=== PATIENT | male | born 1990 | race Caucasian/White ===

== ENCOUNTER 2025-01-29 20:40 | Emergency (ER) | payer MEDICAID, SELFPAY ==
--- OUTSIDE RECORDS SUMMARY | 2022-09-11 08:15 | XMS_ITS | Continuity of Care Document ---
Author Organization [facility] Address [id number][place] [address] Phone Care Team Providers Care Physiognomist Name Role Phone Renee Greenberg DMD Unavailable Unavailable Allergies, Adverse Reactions, Alerts Substance Reaction Status Criticality NSAIDS (Non-Steroidal Anti-Inflammatory Drug) Active No Information Medications Medication Instructions Dosage Effective Dates (start - stop) Status Comments hydrocodone 5 mg-acetaminophen 325 mg tablet take 1 tablet by oral route every 6 hours as needed for pain from oral surgery - Active pantoprazole DR 40 mg granules delayed-release for susp in packet take 1 packet by oral route every day mixed in 1 teaspoonful of applesauce or apple juice 40 MG - Active [place] 5 mg-325 mg tablet take 1 tablet by oral route every 4- 6 hours as needed for pain - No Longer Active Procedures Procedure Date Pre-Pay For Services Panoramic Film Intraoral Periapical First Film Intraoral Periapical Each Additional Film Limited Oral Evaluation Problem Focused Surgical Removal Of Erupted Tooth Requir ing Elevat Limited Oral Evaluation Problem Focused Extraction, Erupted Tooth Or Exposed Yeni t (Elevati Intraoral Periapical First Film Limited oral eval, x-ray & 1st extractio n PATIENT LEFT W/O BEING SEEN Limited Oral Evaluation Problem Focused Intraoral Periapical First Film Extraction, Erupted Tooth Or Exposed Yeni t (Elevati EDR Approval Note Intraoral Periapical First Film Limited Oral Evaluation Problem Focused Surgical Removal Of Erupted Tooth Requir ing Elevat EDR Approval Note EDR Approval Note Extraction, Erupted Tooth Or Exposed Yeni t (Elevati Intraoral Periapical Each Additional Film Limited Oral Evaluation Problem Focused Advance Directives Directive Yes / No Effective Date File Name No Information Encounters Encounter Description Practice Location Reason(s) For Visit Diagnoses Date Provider Providers Copied on Encounter [facility], [id number], [id number], [place] tel:[phone] [facility] No Information Mar-0 3- 3 Dionicio Duran. [address] [place] [address], [address], [place]. tel:[phone] Referring Provider: Renee Greenberg, [address] [place] [address], [address]. tel:[phone] [facility], [id number] [place], [address], [place] tel:[phone] [facility] No Information Mar-0 3- 3 Mariama Millard. [address] [place], [place], [id number], [place]. tel:[phone] Referring Provider: Freeman Leslie, [address] [place], [address] . tel:[phone] sulting Provider: Ana Olsen, [address] [place], [address] . tel:[phone] [facility], [id number] [place], [id number], [place] tel:[phone] [facility] F2 No Information 2 Chika Guzman. [address] [place], [place], [id number], [place]. tel:[phone] Referring Provider: Thomas Link, [address] [place], [address] . tel:[phone] [facility], [id number]-Gq [place], [place], [id number], [place] tel:[phone] [facility] No Information 2 Dionicio Duran. [address] [place] [address], [address], [place]. tel:[phone] Referring Provider: Renee Greenberg, [address] [place] [address], [address]. tel:[phone] [facility], [id number] 559[place], [address], [place] tel:[phone] [facility] Encounter for dental exam and cleaning w/o abnormal findings Sep-0 9 Chika Guzman. [address] [place], [place], [address], [place]. tel:[phone] Referring Provider: Thomas Link, [address] [place], [address] . tel:[phone] [facility], [id number] [id number]-W[place], [address], [place] tel:[phone] [facility] Encounter for dental exam and cleaning w/o abnormal findings Sep-1 7 No Information [facility], [id number]-Wu [place], [address], [place] tel:[phone] [facility] Encounter for dental exam and cleaning w/o abnormal findings Sep-2 2 6 Rigoberto Gutiérrez. [address] [place], [address], [place]. tel:[phone] Referring Provider: Brock Franklin T, [address] [place], [address]. tel:[phone] Family History Family Member Type Diagnosis Age At Onset Mother Problem (finding) Alive and well Father Problem (finding) Alive and well Payers Payer name Insurance type Covered democrat ID Authoriza tion(s) No Information Social History Type Description Quantity Date Captured Comments Alcohol Use Details No Caffeine Use Details Unknown Tobacco Use Status Smoking Status No Information Sex Male Sexual Orientation Bisexual Gender Identity Male Chief Complaint And Reason For Visit No Information Reason For Referral Reason For Referral No Information Plan Of Treatment Date Type Action Status Goal Tobacco cessation counseling completed Goal Tobacco cessation counseling completed Goal Tobacco cessation counseling completed Goal Tobacco cessation counseling completed Goal Tobacco cessation counseling completed Goal Tobacco cessation counseling completed History Of Present Illness Encounter Date Complaint History Of Prese nt Illness No Information Functional Status Date Functional Assessmen t No Information Instructions Date Instruction Additional Infor mation Lifestyle education Related to D ental Examination Lifestyle education Related to D ental Examination Lifestyle education Related to D ental Examination Lifestyle education Related to D ental Examination Lifestyle education Related to D ental Examination Lifestyle education Related to D ental Examination Assessments Type Assessment Date No Information Patient Care Teams Name Effective Dates (start - stop) Status Members No Information
--- NOTE | 2025-01-29 | ECG_ITS ---
Test Reason : cp Blood Pressure : */* mmHG Vent. Rate : 64 BPM Atrial Rate : 64 BPM P-R Int : 172 ms QRS Dur : 96 ms QT Int : 380 ms P-R-T Axes : 32 55 29 degrees QTcB Int : 392 ms Normal sinus rhythm Normal ECG No previous ECGs available Referred By: Generic ED Physician Electronically Signed By: Will Tillman
[2025-01-29 21:19] VITALS: BP 142/75; PULSE 61; RESP 18; TEMP 36.6; O2SAT 100; BMI 33.4
--- NOTE | 2025-01-29 21:24 | PC.NURSE ---
pt with episode of vomiting after triage
[2025-01-29 21:52] LABS: MANUAL DIFF FLAG NO
[2025-01-29 21:58] LABS: Hematocrit 29.8 % (42.0-52.0); Hemoglobin 8.4 g/dl (14.0-18.0); Imm Gran Abs Auto 0.01 X10*3/uL (0.00-0.03); Imm Gran Pct Auto 0.2 % (0.0-0.4); Lymphocytes Absolute Auto 1.8 X10*3/uL (1.2-4.9); Mean Corpuscular HGB Conc 28.2 g/dl (31.0-36.0); Mean Corpuscular Hemoglobin 21.4 pg (27.0-33.0); Mean Corpuscular Volume 75.8 fL (80.0-98.0); NRBC Abs Auto 0.000 X10*3/uL (0.0-0.012); NRBC Pct Auto 0.0 /100WBC (0.0-0.2); Platelet Count 271 X10*3/uL (160-400); Red Blood Count 3.93 X10*6/uL (4.60-5.80); White Blood Count 5.5 X10*3/uL (4.8-10.8)
[2025-01-29 22:10] LABS: Alanine Aminotransferase 23 U/L (0-40); Albumin Level 4.6 g/dL (3.5-5.0); Alkaline Phosphatase 62 U/L (39-117); Anion Gap 9 (12-20); Aspartate Amino Transferase 30 U/L (5-37); Blood Urea Nitrogen 8 mg/dL (9-16); Calcium 8.7 mg/dL (8.4-10.2); Carbon Dioxide 28 mmol/L (22-29); Chloride 108 mmol/L (96-108); Creatinine Clr Calc Pharmacy 204.4; Estimated Glomerular Filt Rate > 60; Potassium 3.8 mmol/L (3.3-5.1); Sodium 141 mmol/L (135-145); Total Protein 7.1 g/dL (6.5-8.0)
[2025-01-29 22:17] LABS: Troponin-I High Sensitivity < 2.7 ng/L (<3.5-35.0)
[2025-01-30 01:18] VITALS: BP 124/73; PULSE 56; RESP 17; TEMP 36.7; O2SAT 99
--- NOTE | 2025-01-30 02:05 | ED_ITS ---
HPI - Chest Pain General Chief Complaint: Chest Pain Stated Complaint: chest pain for almost a week Time Seen by Provider: 01/30/25 01:47 Source: patient Mode of arrival: ambulatory Limitations: no limitations History of Present Illness ED Provider: Dr. Rere Garcia HPI narrative: Patient comes to the emergency room complaining of intermittent chest pains for about a week, patient states that the pain is unrelated to exertion. Patient states that he works for [employer] and his work is very physically demanding. Patient denies any trauma. Patient denies any shortness of breath, but states that he does feel short of breath going up the stairs. However, patient states that this has been going on for several months and has not not paid any significant attention to this. Related Data Previous Rx's ?Medication ?Instructions ?Recorded ferrous gluconate 324 mg (37.5 mg 324 mg PO DAILY #30 tabs 01/30/25 iron) tablet Allergies Allergy/AdvReac Type Severity Reaction Status Date / Time NSAIDS (Non-Steroidal AdvReac Gastrointestinal Verified 01/29/25 21:20 Anti-Inflamma Hemorrhage Review of Systems 2 Review of Systems: Constitutional : No Weight loss, No Fever, No Chills, No Night Sweats, No Fatigue, No Malaise ENT/Mouth : No Hearing loss, No Ear Pain, No Nasal Congestion, No Sinus Pain, No Hoarseness, No sore throat, No Rhinorrhea, No Swallowing Difficulty Eyes: No Eye Pain, No Swelling, No Redness, No Foreign Body, No Discharge, No Vision Changes Cardiovascular : Complaining of chest pain, intermittent, unrelated to exertion for the last couple of weeks. No SOB, complaining of chronic Dyspnea on Exertion, No Orthopnea, No Edema, No Palpitations Respiratory : No Cough, No Sputum, No Wheezing, No Smoke Exposure, No Dyspnea Gastrointestinal : No Nausea, No Vomiting, No Diarrhea, No Constipation, No abdominal Pain, No Hematochezia, No Melena Genitourinary : no irregular bleeding, No Dysuria, No Urinary Frequency, No Hematuria, No Urinary Incontinence, No Urgency, No Flank Pain, No Urinary Flow Changes, No Hesitancy Musculoskeletal : No joint pain, No Myalgias, No Joint Swelling Skin : No Skin Lesions, No rash Neuro : No Weakness, No Numbness, No Paresthesias, No Loss of Consciousness, No Dizziness, No Headache Psych : No Anxiety/Panic, No Depression, No SI/HI/AH/VH, No Social Issues, Heme/Lymph: No Bruising, No Bleeding,No Lymphadenopathy Endocrine : No Polyuria, No Polydipsia, No Temperature Intolerance [facility] Past Medical History Surgical History (Updated 01/30/25 @ 02:07 by Rere Garcia MD) H/O gastric bypass Social History Social History Advance Directives: No Advance Directives Information Provided: Yes Do you have a plan to hurt others: No Plan Physical Exam 2 Vital Signs: Vital Signs: Last Vital Signs Temp 98.1 F 01/30/25 01:18 Pulse 56 01/30/25 01:18 Resp 17 01/30/25 01:18 BP 124/73 01/30/25 01:18 Pulse Ox 99 01/30/25 01:18 O2 Del Method Room Air 01/30/25 01:18 BMI result Body Mass Index 33.4 Course Course Course Narrative: Patient complaining of chest pain for a week, unrelated to exertion. Patient also shortness of with exertion/going up the stairs for several months. Denies any fever or chills. Medications Administered Discontinued Medications Generic Name Dose Route Start Last Admin Trade Name Adyq PRN Reason Stop Dose Admin Ondansetron HCl 4 mg 01/29/25 21:24 01/29/25 21:26 Ondansetron Odt 4 Mg Tab.Rapdis TRANSLINGU 01/29/25 21:25 4 mg ONCE ONE Administration Medical Decision Making Medical Decision Making [facility] Narrative: My interpretation of EKG: Normal sinus rhythm, heart rate 64, no ST segment depression or elevation, no T-wave inversion, QTC 392 My interpretation of labs: Patient's hematology is 8.4, no significant abnormality in patient's white blood cell count, platelets. No significant abnormality in patient's chemistry, normal troponin, normal LFTs. Patient states that he has been told that he is anemic but does not have a PCP. Patient states it has been 3 or 4 years since the last time that he went to see his primary care physician. Patient states that he moved from [place] a a month ago. Patient states that he already has been told that he is anemic, it was believed this was secondary to his gastric bypass which she had 12 years ago. Patient denies any blood in the stool or black stool. Patient states that he does have history of per GI bleed several years after his surgery Patient's occult is was negative. Patient denies any fever chills, states that he lost 13 lb but this is secondary to stress from the recent move according to the patient. I discussed with the patient that a negative guaiac does not rule out malignancy, patient needs to follow-up this PCP and eventually we need likely a colonoscopy. MCV is 75.8. Patient will be started on iron p.o.. I discussed with the patient that given his level of hemoglobin and his symptoms, he would probably benefit from receiving blood. Patient declined at this time, patient states that he will go home and take some iron. Admission was considered, but patient declined, states he will be feeling better from home. Differential Diagnosis Differential Diagnoses: The differential diagnosis associated with the presentation includes (As above) Admission/Observation Consideration of admission/observation: Escalation of care including admission/observation considered (Given patient's labs, observation was considered) Lab Data MDM Lab Attestation statement: I reviewed the patient's lab results. 01/29/25 21:47 01/29/25 21:47 Labs: Lab Results 01/29/25 01/30/25 Range/Units 21:47 02:20 WBC 5.5 (4.8-10.8) X10*3/uL RBC 3.93 L (4.60-5.80) X10*6/uL Hgb 8.4 L (14.0-18.0) g/dl Hct 29.8 L (42.0-52.0) % MCV 75.8 L (80.0-98.0) fL MCH 21.4 L (27.0-33.0) pg MCHC 28.2 L (31.0-36.0) g/dl RDW 18.6 H (11.0-16.0) % Plt Count 271 (160-400) X10*3/uL MPV 9.7 (9.4-12.4) fL Immature Gran % (Auto) 0.2 (0.0-0.4) % Neut % (Auto) 57.8 (45-73) % Lymph % (Auto) 32.5 (20-40) % Sterling % (Auto) 8.2 (2-11) % Eos % (Auto) 1.1 (0-4) % Baso % (Auto) 0.2 (0-2) % Lymph # (Auto) 1.8 (1.2-4.9) X10*3/uL Sterling # (Auto) 0.5 (0.1-1.2) X10*3/uL Eos # (Auto) 0.1 (0.0-0.4) X10*3/uL Baso # (Auto) 0.0 (0.0-0.2) X10*3/uL Abs Immat Gran (auto) 0.01 (0.00-0.03) X10*3/uL Absolute Neuts (auto) 3.2 (2.0-8.3) x10*3/uL Absolute Nucleated RBC 0.000 (0.0-0.012) X10*3/uL Nucleated RBC % (auto) 0.0 (0.0-0.2) /100WBC Sodium 141 (135-145) mmol/L Potassium 3.8 (3.3-5.1) mmol/L Chloride 108 (96-108) mmol/L Carbon Dioxide 28 (22-29) mmol/L Anion Gap 9 L (12-20) BUN 8 L (9-16) mg/dL Creatinine 0.65 (0.5-1.4) mg/dL Estim Creat Clear Calc 204.4 Estimated GFR > 60 Random Glucose 94 (60-115) mg/dL Calcium 8.7 (8.4-10.2) mg/dL Total Bilirubin 0.3 (0.0-1.0) mg/dL Direct Bilirubin 0.1 (0.0-0.5) mg/dL AST 30 (5-37) U/L ALT 23 (0-40) U/L Alkaline Phosphatase 62 (39-117) U/L Troponin I High Sens < 2.7 (<3.5-35.0) ng/L Total Protein 7.1 (6.5-8.0) g/dL Albumin 4.6 (3.5-5.0) g/dL Stool Occult Blood NEGATIVE (NEGATIVE) Critical Care Time Critical Care Time Critical Care Time: Yes Total Critical Care Time: 35 Attestation: I have personally provided critical care time. Time includes review of lab data, radiology results, discussion with consultants, and monitoring for potential decompensation. Intervention performed as documented. Discharge Plan Discharge Clinical Impression: Atypical chest pain, Chronic anemia Patient Disposition: Home, Self-Care Additional Instructions: Please follow-up with your primary care physician tomorrow. If you have any worsening or new symptoms, please return to the emergency room or call 911 Prescriptions: New ferrous gluconate 324 mg (37.5 mg iron) tablet 324 mg PO DAILY Qty: 30 0RF Referrals: Sandhya Arredondo MD [Physician, Hematology & Oncology] Print Language: Georgian
--- OUTSIDE RECORDS SUMMARY | 2025-01-30 02:16 | XMS_ITS | Clinical Summary ---
Author Organization [facility] Address [address] [place] [address] Care Team Providers Care Mold Breaker Name Role Phone Unavailable Primary Care Provider Unavailabl e Source Comments PLEASE NOTE, if this patient is a minor, it may be UNLAWFUL to discuss sensitive information that is contained in these records (such as FAMILY PLANNING, MENTAL HEALTH or SUBSTANCE ABUSE) with the minor patient's parent or other person without the patient's specific authorization.[facility] Allergies Active Allergy Reactions Criticality Noted Date Comments Nsaids (Non-Steroidal Anti-I nflammatory Drug) 04/02/2016 Medications HYDROcodone-acet aminophen (NORCO) 5-325 mg per tablet Take 1 Tablet by mouth every 6 hours as needed 09/11/2022 Active Active Problems Problem Noted Date Diagnosed Date Toothache 03/30/2017 Social History Tobacco Use Types Packs/Day Years Used Date Smoking Tobacco: Never Assessed Social Connections Answer Date Recorded Connectedness 0 03/27/2024 Financial Resource Strain Answer Date R ecorded Financial Resource Strain 0 2023 Stress Answer Date Recorded Stress 0 11/03/2023 Physical Activity Answer Date Recorded Physical Activity 0 11/03/2023 Food Insecurity Answer Date Recorded Food 0 04/06/2024 Transportation Needs Answer Date Record ed Transportation 0 11/03/2023 Housing Stability Answer Date Recorded Housing 0 11/03/2023 Safety and Environment Answer Date Gregg rded Safety 0 11/03/2023 Utilities Answer Date Recorded Utilities 0 11/03/2023 Employment Answer Date Recorded Stress 0 03/27/2024 Sex and Gender Information Value Date Recorded Sex Assigned at Not on file Legal Sex Male 6:51 PM PDT Gender Identity Male 12/31/2023 4:06 PM PDT Sexual Orientation Bisexual 12/31/2023 4: 06 PM PDT Plan of Treatment Health Maintenance Due Date Last Done Comments Anxiety Screening 1992 Hepatitis B Screening 1992 Hepatitis C Screening 1992 Tobacco Screening 1992 HIV Screening 1992 Hypertension Screening (#1) 2010 Imm-DTaP/Tdap/Td (1 - Tdap) 2011 Imm-Hepatitis B (1 of 3 - 19+ 3-dose series) 1 [id number] (2023- season) 2024 Alcohol and Drug Screen 07/12/2024 Depression Annual Screen 07/12/2024 Imm-Influenza (#1) 2025
[2025-01-30 02:24] LABS: OBS Int Ctl Valid YES; OBS1 NEGATIVE (NEGATIVE)
[2025-01-30 04:26] VITALS: BP 123/71; PULSE 60; RESP 16; TEMP 36.6; O2SAT 100
[2025-01-30 04:37] VITALS: BP 123/71; PULSE 60; RESP 16; TEMP 36.6; O2SAT 100
== END 2025-01-30 04:38 | disposition home or self-care (01) ==
PROVIDERS: Emergency Provider Emergency Medicine
DX: R07.89 Other chest pain (principal); D64.89 Other specified anemias; R06.02 Shortness of breath
CPT/HCPCS: 36415; 80048; 80076; 82272; 84484; 85025; 93005; 99283; 99284

== ENCOUNTER → 2025-01-29 20:55 | Outpatient (BNV) | payer MEDICAID, SELFPAY | PROVIDERS: Emergency Provider Emergency Medicine; Visit Provider Internal Medicine Cardiovascular Disease | DX: R07.89 Other chest pain (principal) | CPT/HCPCS: 93010 ==

== ENCOUNTER 2025-03-19 20:11 | Emergency (ER) | payer OTHER, SELFPAY ==
--- OUTSIDE RECORDS SUMMARY | 2022-09-11 08:15 | XMS_ITS | Continuity of Care Document ---
Author Organization [facility] Address [address] [id number][place] [address] Phone Care Team Providers Care Wheat Shipper Name Role Phone Renee Greenberg DMD Unavailable [...] or apple juice 40 MG - Active [place] 5 mg-325 mg tablet take 1 tablet [...] Diagnoses Date Provider Providers Copied on Encounter [facility], [id number], [address], [place] tel:[phone] [facility] No Information Mar-0 3- 3 Dionicio Duran. [address] [place] [address], [address], [place]. tel:[phone] Referring Provider: Renee Greenberg, [address] [place] [address], [address]. tel:[phone] [facility], [id number] 173768MC[place], [address], [place] tel:[phone] [facility] No Information Mar-0 3- 3 Mariama Millard. [address] [place], [place], [address], [place]. tel:[phone] Referring Provider: Freeman Leslie, [address] [place], [address] . tel:[phone] sulting Provider: Ana Olsen, [address] [place], [address] . tel:[phone] [facility], [id number] 282097HX[place], [address], [place] tel:[phone] [facility] F2 No Information 2 Chika Guzman. [address], [place], [address], [place]. tel:[phone] Referring Provider: Thomas Link, [address] [place], [address] . tel:[phone] [facility], [id number] 880481PU-Vd [place], [address], [place] tel:[phone] [facility] No Information 2 Dionicio Duran. [address] [place] [address], [address], [place]. tel:[phone] Referring Provider: Renee Greenberg, [address] [place] [address], [address]. tel:[phone] [facility], [id number][place], [address], [place] tel:[phone] [facility] Encounter for dental exam and cleaning w/o abnormal findings Sep-0 9 Chika Guzman. [address], [place], [address], [place]. tel:[phone] Referring Provider: Thomas Link, [address] [place], [address] . tel:[phone] [facility], [id number] 380553KG-Rm [place], [address], [place] tel:[phone] [facility] Encounter for dental exam and cleaning w/o abnormal findings Sep-1 7 No Information [facility], [id number] 343543HE-Zi [place], [id number], [place] tel:[phone] [facility] Encounter for dental exam and cleaning w/o abnormal findings Sep-2 2 6 Rigoberto Gutiérrez. [address] [place], [address], [place]. tel:[phone] Referring Provider: Brock Franklin T, [address] [place], [address]. tel:[phone] Family History Family Member Type Diagnosis Age At Onset Mother Problem (finding) Alive and well Father Problem (finding) Alive and well Payers Payer name Insurance type Covered alliance party ID Authoriza tion(s) No Information Social History [...]
--- NOTE | ~2025-03-19 | CT_ITS ---
CLINICAL HISTORY: right flank pain CT ABDOMEN AND PELVIS WITHOUT CONTRAST COMPARISON: None provided. FINDINGS: There is mild right-sided hydroureteronephrosis, with an approximately 4-5 mm stone in the distal right ureter. Stone is seen on axial image 665 of series 4, and coronal image 59. A few small less than 5 mm bilateral renal calculi are noted. No left-sided hydronephrosis or left-sided obstructing stone. No evidence of a urinary bladder stone. No evidence of a bowel obstruction. No free air. Portions of the colon are significantly underdistended which limits assessment. No pericolonic inflammation. Appendix is visualized and there is no evidence of acute appendicitis. The lung bases are unremarkable. Postsurgical changes are noted involving the stomach and small bowel. No focal liver lesion. Liver is enlarged and measures 19.1 cm on coronal image 54. Distended gallbladder is noted. No visible stone. No pericholecystic inflammation. Common bile duct is not dilated. No CT evidence of acute pancreatitis. Spleen is mildly enlarged and measures 12.5 cm on coronal image 60. Adrenal glands are unremarkable. Abdominal aorta is normal in caliber without evidence of an aneurysm. No lymphadenopathy or loculated fluid collection. Bone windows are unremarkable. IMPRESSION: 1. Mild right-sided hydroureteronephrosis, with a 4-5 mm stone in the distal right ureter. 2. A few small less than 5 mm bilateral renal calculi are noted. No left-sided hydronephrosis or left-sided obstructing stone. 3. Mild hepatosplenomegaly. 4. Additional findings are detailed above. This document has been electronically signed by: Alexis Nash M.D. on 03/20/2025 01:53:31
[2025-03-19 20:26] VITALS: BP 115/56; PULSE 80; RESP 20; TEMP 36.1; O2SAT 99; BMI 41.6
[2025-03-19 20:36] LABS: MANUAL DIFF FLAG NO
[2025-03-19 20:37] LABS: Hematocrit 32.8 % (42.0-52.0); Hemoglobin 9.6 g/dl (14.0-18.0); Imm Gran Abs Auto 0.05 X10*3/uL (0.00-0.03); Imm Gran Pct Auto 0.4 % (0.0-0.4); Lymphocytes Absolute Auto 1.0 X10*3/uL (1.2-4.9); Mean Corpuscular HGB Conc 29.3 g/dl (31.0-36.0); Mean Corpuscular Hemoglobin 22.9 pg (27.0-33.0); Mean Corpuscular Volume 78.1 fL (80.0-98.0); NRBC Abs Auto 0.000 X10*3/uL (0.0-0.012); NRBC Pct Auto 0.0 /100WBC (0.0-0.2); Platelet Count 289 X10*3/uL (160-400); Red Blood Count 4.20 X10*6/uL (4.60-5.80); White Blood Count 11.4 X10*3/uL (4.8-10.8)
[2025-03-19 20:54] LABS: Alanine Aminotransferase 24 U/L (0-40); Albumin Level 4.6 g/dL (3.5-5.0); Alkaline Phosphatase 77 U/L (39-117); Anion Gap 14 (12-20); Aspartate Amino Transferase 30 U/L (5-37); Blood Urea Nitrogen 12 mg/dL (9-16); Calcium 9.0 mg/dL (8.4-10.2); Carbon Dioxide 26 mmol/L (22-29); Chloride 105 mmol/L (96-108); Creatinine Clr Calc Pharmacy 150.4; Estimated Glomerular Filt Rate > 60; Lipase 21 U/L (8-78); Potassium 4.4 mmol/L (3.3-5.1); Sodium 141 mmol/L (135-145); Total Protein 7.2 g/dL (6.5-8.0)
[2025-03-19 23:50] LABS: Appearance Urine Clear; Glucose Urine UA Negative (Negative); PH 6.0 (5.0-9.0); Specific Gravity - Urine 1.015 (1.005-1.025); UMIC TRIGGER UACC YES
--- NOTE | 2025-03-20 00:17 | ED_ITS ---
HPI - General Adult General Chief complaint: Abdominal Pain Stated complaint: frequency (?UTI, ?Kidney stone) Time Seen by Provider: 03/19/25 23:32 Source: patient, RN notes reviewed and old records reviewed Mode of arrival: ambulatory Limitations: no limitations History of Present Illness ED Provider: Elisha PRIEST narrative: 34-year-old male presents for evaluation of right-sided flank pain. Patient reports his pain started this morning. He reports having the urge to urinate all day today. His pain is 8/10. He has some nausea but no vomiting. Denies any black or bloody stool He reports a gastric bypass several years ago He also reports a history of kidney stones No fevers or chills Related Data Previous Rx's ?Medication ?Instructions ?Recorded ferrous gluconate 324 mg (37.5 mg 324 mg PO DAILY #30 tabs 01/30/25 iron) tablet tamsulosin 0.4 mg capsule 0.4 mg PO DAILY #7 caps 04/05 Allergies Allergy/AdvReac Type Severity Reaction Status Date / Time NSAIDS (Non-Steroidal AdvReac Gastrointestinal Verified 03/19/25 20:29 Anti-Inflamma Hemorrhage Review of Systems 2 Constitutional: Constitutional: Denies body ache(s), Denies chills and Denies fever(s) ENT: Denies vertigo and Denies dizziness Cardiovascular: Cardiovascular: Denies chest pain and Denies dyspnea on exertion Respiratory: Respiratory: Denies cough and Denies dyspnea on exertion Gastrointestinal: Gastrointestinal: Reports abdominal pain, Reports nausea and Denies vomiting Genitourinary: Genitourinary: Denies hematuria, Denies genital pain, Reports flank pain, Denies penile discharge, Denies scrotal swelling, Denies testicular mass, Denies testicular pain and Reports urinary urgency Musculoskeletal: Musculoskeletal: Denies abnormal gait Neurologic: Denies abnormal gait, Denies vertigo and Denies dizziness [facility] Past Medical History Surgical History (Updated 01/30/25 @ 02:07 by Rere aGrcia MD) H/O gastric bypass Social History Social History Advance Directives: No Advance Directives Information Provided: Yes Do you have a plan to hurt others: No Plan Physical Exam ED Vital Signs: Vital Signs - 24 hr 03/19/25 20:26 03/20/25 01:19 Temperature 97.0 F 98.5 F Pulse Rate 80 62 Respiratory Rate 20 20 Blood Pressure 115/56 L 130/67 Pulse Oximetry 99 97 Oxygen Delivery Method Room Air Room Air BMI result Body Mass Index 41.6 Const General: healthy appearing, comfortable, no acute distress, alert and awake Nutritional Appearance: well nourished Orientation/consciousness: patient oriented x3 HENMT Head: Yes normocephalic and Yes atraumatic Eyes Eyelids: Yes eyelids normal Conjunctivae: conjunctivae normal Sclerae: sclerae normal Corneas: corneas normal Pupils: Equal, round and reactive pupils present EOM: EOMs intact bilaterally Neck Neck: Yes full ROM Resp Effort & Inspection: normal respiratory effort, able to speak in complete sentences and not labored GI Other: Positive CVA tenderness on right Inspection: No distended Palpation (GI): Soft to palpation, not firm, nontender, no guarding and not rigid Skin General skin exam: elasticity normal Neuro General: patient oriented x3 Cranial nerves: Yes Equal, round and reactive pupils present and Yes Bilaterally intact EOM present Cognition (Neuro): normal cognition Extrem Other: Moving all extremities well without any obvious deformities Course Reevaluation(s) Reevaluation #1: The patient's CT scan does confirm a 4/5 millimeter right UVJ stone. I discussed this with the patient, he is currently pain-free. Plan for discharge with symptomatic care Time: 02:01 Medications Administered Discontinued Medications Generic Name Dose Route Start Last Admin Trade Name Freq PRN Reason Stop Dose Admin Sodium Chloride 1,000 mls @ 999 mls/hr 03/19/25 23:45 03/20/25 00:23 Ns IV 03/20/25 00:45 999 mls/hr .Q1H1M MARLYN Administration Morphine Sulfate 4 mg 03/19/25 23:55 03/20/25 00:21 Morphine Sulfate 4 Mg/Ml Cartridge IVPUSH 03/19/25 23:56 4 mg ONCE ONE Administration Protocol Ondansetron HCl 4 mg 03/19/25 23:55 03/20/25 00:21 Ondansetron Hcl 4 Mg/2 Ml Vial IVPUSH 03/19/25 23:56 4 mg ONCE ONE Administration Medical Decision Making Medical Decision Making [facility] Narrative: 34-year-old male with no significant past medical history presents for evaluation of right flank pain starting today. He has positive CVA tenderness, urinalysis is positive for blood, likely obstructive uropathy. Plan for CT scan of the abdomen pelvis without contrast. Hematology does show a mild leukocytosis 11.4 with a left shift. Chemistries are within normal limits. Differential Diagnosis Differential Diagnoses: The differential diagnosis associated with the presentation includes Obstructive uropathy Pyelonephritis UTI Flank pain Constipation Lab Data MDM Lab Attestation statement: I reviewed the patient's lab results. 03/19/25 20:33 03/19/25 20:33 Labs: Lab Results 03/19/25 03/19/25 Range/Units 20:33 23:44 WBC 11.4 H (4.8-10.8) X10*3/uL RBC 4.20 L (4.60-5.80) X10*6/uL Hgb 9.6 L (14.0-18.0) g/dl Hct 32.8 L (42.0-52.0) % MCV 78.1 L (80.0-98.0) fL MCH 22.9 L (27.0-33.0) pg MCHC 29.3 L (31.0-36.0) g/dl RDW 20.9 H (11.0-16.0) % Plt Count 289 (160-400) X10*3/uL MPV 9.3 L (9.4-12.4) fL Immature Gran % (Auto) 0.4 (0.0-0.4) % Neut % (Auto) 85.4 H (45-73) % Lymph % (Auto) 8.3 L (20-40) % Mcminn % (Auto) 5.6 (2-11) % Eos % (Auto) 0.2 (0-4) % Baso % (Auto) 0.1 (0-2) % Lymph # (Auto) 1.0 L (1.2-4.9) X10*3/uL Mcminn # (Auto) 0.6 (0.1-1.2) X10*3/uL Eos # (Auto) 0.0 (0.0-0.4) X10*3/uL Baso # (Auto) 0.0 (0.0-0.2) X10*3/uL Abs Immat Gran (auto) 0.05 H (0.00-0.03) X10*3/uL Absolute Neuts (auto) 9.8 H (2.0-8.3) x10*3/uL Absolute Nucleated RBC 0.000 (0.0-0.012) X10*3/uL Nucleated RBC % (auto) 0.0 (0.0-0.2) /100WBC Sodium 141 (135-145) mmol/L Potassium 4.4 (3.3-5.1) mmol/L Chloride 105 (96-108) mmol/L Carbon Dioxide 26 (22-29) mmol/L Anion Gap 14 (12-20) BUN 12 (9-16) mg/dL Creatinine 0.82 (0.5-1.4) mg/dL Estim Creat Clear Calc 150.4 Estimated GFR > 60 Random Glucose 102 (60-115) mg/dL Calcium 9.0 (8.4-10.2) mg/dL Total Bilirubin 0.3 (0.0-1.0) mg/dL AST 30 (5-37) U/L ALT 24 (0-40) U/L Alkaline Phosphatase 77 (39-117) U/L Total Protein 7.2 (6.5-8.0) g/dL Albumin 4.6 (3.5-5.0) g/dL Lipase 21 (8-78) U/L Urine Color Yellow Urine Appearance Clear Urine pH 6.0 (5.0-9.0) Ur Specific Lincoln 1.015 (1.005-1.025) Urine Protein Negative (Neg-Trace) mg/dL Urine Glucose (UA) Negative (Negative) mg/dL Urine Ketones Negative (Negative) mg/dL Urine Blood Trace H (Negative) Urine Nitrite Negative (Negative) Ur Leukocyte Esterase Negative (Negative) Urine RBC 3-5 H (0-2) /HPF Urine WBC 0-5 (0-5) /HPF Ur Squamous Epith Cells 0-2 (0-2) /HPF Urine Bacteria None Seen (None Seen) Hyaline Casts 3-5 (0-2) /LPF Independent Interpretation I performed an independent interpretation of an: CT Scan Interpretation: Right UVJ stone Radiology Impression Discussion of test interpretation with radiology: I have reviewed the radiologist's reading. Radiologist Impression: FINDINGS: There is mild right-sided hydroureteronephrosis, with an approximately 4-5 mm stone in the distal right ureter. Stone is seen on axial image 665 of series 4, and coronal image 59. A few small less than 5 mm bilateral renal calculi are noted. No left-sided hydronephrosis or left-sided obstructing stone. No evidence of a urinary bladder stone. No evidence of a bowel obstruction. No free air. Portions of the colon are significantly underdistended which limits assessment. No pericolonic inflammation. Appendix is visualized and there is no evidence of acute appendicitis. The lung bases are unremarkable. Postsurgical changes are noted involving the stomach and small bowel. No focal liver lesion. Liver is enlarged and measures 19.1 cm on coronal image 54. Distended gallbladder is noted. No visible stone. No pericholecystic inflammation. Common bile duct is not dilated. No CT evidence of acute pancreatitis. Spleen is mildly enlarged and measures 12.5 cm on coronal image 60. Adrenal glands are unremarkable. Abdominal aorta is normal in caliber without evidence of an aneurysm. No lymphadenopathy or loculated fluid collection. Bone windows are unremarkable. IMPRESSION: 1. Mild right-sided hydroureteronephrosis, with a 4-5 mm stone in the distal right ureter. 2. A few small less than 5 mm bilateral renal calculi are noted. No left-sided hydronephrosis or left-sided obstructing stone. 3. Mild hepatosplenomegaly. 4. Additional findings are detailed above. This document has been electronically signed by: Alexis Nash M.D. on 03/20/2025 01:53:31 Discharge Plan Discharge Clinical Impression: Acute unilateral obstructive uropathy Patient Disposition: Home, Self-Care Instructions: Hydronephrosis (ED), Ureteral Stones (ED) Additional Instructions: Your CT scan showed a 4/5 millimeter stone in the right ureter stuck just before your bladder. Drink lots of fluids. Take Flomax daily for the next week. Follow-up with your primary doctor, return for new or worsening symptoms, especially if your pain is unbearable or if you develop any fevers Prescriptions: New tamsulosin 0.4 mg capsule 0.4 mg PO DAILY Qty: 7 0RF No Action ferrous gluconate 324 mg (37.5 mg iron) tablet 324 mg PO DAILY Qty: 30 0RF Print Language: St Helenian
--- OUTSIDE RECORDS SUMMARY | 2025-03-20 00:45 | XMS_ITS ---
Author Name [facility] Organization Unknown Allergies Allergen Reaction Severity Comment Documented Date Source Statu s NSAIDS (NON-STEROIDAL ANTI-INFLAMMATORY DRUG) ENS_AONECT Problems Problem Status Onset Date Problem Type Date of Resoluti on Source Sprain of ligament of proximal interphalangeal joint of finger active 2025-03-14 ProblemAct ENS_AONECT Encounters Encounter Type Encounter Reason Primary Diagnosis Location Date Ambulatory [facility] 03/16/2025 Ambulatory [facility] 03/14/2025 [facility] 03/14/2025 Amb[facility] 03/14/2025 [facility] 03/09/2025 [facility] 03/08/2025 Amb[facility] 03/08/2025 [facility] 03/01/2025 Care Team Organization Name Specialty Phone Email Start Date End Da [facility] No provided Primary Care 03/01/2025
--- OUTSIDE RECORDS SUMMARY | 2025-03-20 00:45 | XMS_ITS | Encounter Summary ---
Author Organization [facility] Address [address] [place] [address] Care Team Providers Care Industrial Cleaning Technician Name Role Phone Unavailable Primary Care Provider Unavailabl e Reason for Visit * Reason Comments Office Visit: Converted Data Conversion Encounter Details Date Type Department Care Team (Late st Contact Info) Description 01/18/2024 Dental Interim Note [facility] [address] [place] [address] Default, [facility] Provider [place] Social History Tobacco Use Types Packs/Day Years Used Date Smoking Tobacco: Never Assessed Social Connections Answer Date Recorded Social Connections and Isolation 0 11/03/2023 Financial Resource Strain Answer Date R ecorded Financial Resource Strain 0 2023 Stress Answer Date Recorded Stress 0 11/03/2023 Physical Activity Answer Date Recorded Physical Activity 0 11/03/2023 Food Insecurity Answer Date Recorded Food 0 11/03/2023 Transportation Needs Answer Date Record ed Transportation 0 11/03/2023 Housing Stability Answer Date Recorded Housing 0 11/03/2023 Safety and Environment Answer Date Gregg rded Safety 0 11/03/2023 Utilities Answer Date Recorded Utilities 0 11/03/2023 Employment Answer Date Recorded Employment 0 11/03/2023 Sex and Gender Information Value Date Recorded Sex Assigned at Not on file Legal Sex Male 6:51 PM PDT Gender Identity Male 12/31/2023 4:06 PM PDT Sexual Orientation Bisexual 12/31/2023 4: 06 PM PDT documented as of this encounter Plan of Treatment Not on file documented as of this encounter Visit Diagnoses Not on filedocumented in this encounter
[2025-03-20 01:19] VITALS: BP 130/67; PULSE 62; RESP 20; TEMP 36.9; O2SAT 97
[2025-03-20 02:10] VITALS: BP 130/67; PULSE 62; RESP 20; TEMP 36.9; O2SAT 97
== END 2025-03-20 02:11 | disposition home or self-care (01) ==
PROVIDERS: Emergency Provider Emergency Medicine Emergency Medical Services; PCP Nurse Practitioner Pediatrics
DX: N13.9 Obstructive and reflux uropathy, unspecified (principal); R10.31 Right lower quadrant pain; R35.0 Frequency of micturition; R11.0 Nausea; Z98.84 Bariatric surgery status; Z79.899 Other long term (current) drug therapy
CPT/HCPCS: 36415; 74176; 80053; 81001; 83690; 85025; 96361; 96374; 96375; 99283; 99284; J2270; J2405

== ENCOUNTER → 2025-03-20 | Outpatient (BNV) | payer OTHER, SELFPAY | PROVIDERS: Emergency Provider Emergency Medicine Emergency Medical Services; PCP Nurse Practitioner Pediatrics; Visit Provider Radiology Diagnostic Radiology | DX: N20.0 Calculus of kidney (principal) | CPT/HCPCS: 74176 ==

== ENCOUNTER 2025-04-27 09:18 | Emergency (ER) | payer OTHER, SELFPAY ==
[2025-04-27 09:21] VITALS: BP 156/79; PULSE 70; RESP 18; TEMP 36.3; O2SAT 99; BMI 34.0
--- NOTE | 2025-04-27 09:29 | ED_ITS ---
HPI - General Adult General Chief complaint: Dental/Oral Stated complaint: facial swelling, tooth infection? Time Seen by Provider: 04/27/25 09:29 Source: patient Mode of arrival: ambulatory Limitations: no limitations History of Present Illness ED Provider: Cookie Degroot PA-C HPI narrative: Patient is a 34 year old assigned male at with a history of gastric bypass presenting to the emergency department today with right upper dental swelling / pain. Patient states that over the last day he has had right upper dental swelling. Patient states that he does not have a dentist. Patient denies any other complaints at this time. Related Data Previous Rx's ?Medication ?Instructions ?Recorded ferrous gluconate 324 mg (37.5 mg 324 mg PO DAILY #30 tabs 01/30/25 iron) tablet tamsulosin 0.4 mg capsule 0.4 mg PO DAILY #7 caps 04/05 chlorhexidine gluconate 0.12 % 15 ml buccal BID #118 m L 04/27/25 mouthwash (Peridex) penicillin V potassium 500 mg 500 mg PO BID 10 days #2 0 tabs 04/27/25 tablet Allergies Allergy/AdvReac Type Severity Reaction Status Date / Time NSAIDS (Non-Steroidal AdvReac Gastrointestinal Verified 04/27/25 09:25 Anti-Inflamma Hemorrhage Review of Systems 2 Constitutional: Constitutional: Reports as per HPI Eyes: Eyes: Reports as per HPI ENT: Reports as per HPI Cardiovascular: Cardiovascular: Reports as per HPI Respiratory: Respiratory: Reports as per HPI Gastrointestinal: Gastrointestinal: Reports as per HPI Genitourinary: Genitourinary: Reports as per HPI Musculoskeletal: Musculoskeletal: Reports as per HPI Integumentary/Breasts: Skin/Breast: Reports as per HPI Neurologic: Reports as per HPI Psychiatric: Psychiatric: Reports as per HPI Endocrine: Endocrine: Reports as per HPI Hematologic/Lymphatic: Hematologic/Lymphatic: Reports as per HPI Allergic/Immunologic: Allergic/Immunologic: Reports as per HPI PMFSH Past Medical History Attestation statement: The following information was validated with the patient. Source: old records reviewed and nursing notes reviewed Surgical History H/O gastric bypass Social History Social History Advance Directives: No Advance Directives Information Provided: Yes Physical Exam ED Vital Signs: Vital Signs - 24 hr 04/27/25 09:21 Temperature 97.4 F Pulse Rate 70 Respiratory Rate 18 Blood Pressure 156/79 H Pulse Oximetry 99 Oxygen Delivery Method Room Air BMI result Body Mass Index 34.0 Const General: cooperative, no acute distress, alert and awake Nutritional Appearance: well nourished Orientation/consciousness: patient oriented x3 HENMT Head: Yes normal to inspection and Yes atraumatic Ears: hearing grossly normal bilaterally and external ears normal General nose exam: Normal external nose present, no nasal discharge noted and no epistaxis Face and sinus: Yes normal facial exam, No abrasion and No laceration Mouth: Normal oral and palatal mucosa present, no drooling and no muffled voice Teeth and gingiva: poor dentition Teeth image: 2 1. mild swelling - no fluctuance Eyes General: appearance normal, both eyes and all related structures Periorbital: periorbital findings normal Eyelids: Yes eyelids normal Conjunctivae: conjunctivae normal Pupils: Equal, round and reactive pupils present EOM: EOMs intact bilaterally Neck Neck: Yes normal visual inspection and Yes full ROM Resp Effort & Inspection: normal respiratory effort and able to speak in complete sentences Neuro General: patient oriented x3, moves all extremities and CN's II-XI intact bilaterally Cranial nerves: Yes Equal, round and reactive pupils present Cognition (Neuro): normal cognition Extrem General: Yes normal to inspection, Yes full ROM and Yes capillary refill normal Psych Appearance: grossly normal Mental Status: mental status grossly normal Affect: normal affect Attitude: cooperative Thought process: Normal thought process present Thought content: Normal thought content present Insight: Good insight present (Psych) Medical Decision Making Medical Decision Making MDM Narrative: Patient is a 34 year old assigned male at with a history of gastric bypass presenting to the emergency department today with right upper dental swelling / pain. Patient's physical exam was as noted in the physical exam portion of this note and consistent with a dental infection / developing abscess. The swollen area present at this time is not fluctuant and therefore inappropriate for drainage. I explained my physical exam findings to the patient. I answered all questions asked by the patient. I stressed the importance of the patient taking his medication as directed (either prescribed or as the over the counter packaging recommends). I stressed the importance of the patient following up with his primary care provider and a dentist. I stressed the importance of the patient returning to the emergency department immediately if his symptoms were to worsen or if he were to develop any dizziness, shortness of breath, difficulty breathing, chest pain, blurry vision, loss of vision, nausea, vomiting, abdominal pain, fever, chills, back pain, or any other complaints. Patient verbalized agreement and understanding with this treatment plan and discharge. Differential Diagnosis Differential Diagnoses: The differential diagnosis associated with the presentation includes Right upper dental pain Right upper dental abscess Admission/Observation Consideration of admission/observation: Escalation of care including admission/observation considered Patient would have been admitted to the hospital had his clinical presentation warranted hospital admission. Prescription Management I considered prescription management with: Antibiotic (patient prescribed antibiotic for right upper dental infection) Discharge Plan Discharge Clinical Impression: Dental abscess Patient Disposition: Home, Self-Care Instructions: Dental Abscess (ED) Additional Instructions: Take your antibiotic as prescribed. Follow up with a dentist. IF you are prescribed home medications and/or you are taking over the counter medications at home - it is very important you continue to do so as prescribed / directed unless told otherwise. Follow up with a primary care provider. Return to the emergency department immediately if your symptoms worsen or if you develop any numbness, tingling, dizziness, shortness of breath, difficulty breathing, chest pain, blurry vision, loss of vision, nausea, vomiting, abdominal pain, fever, chills, back pain, or any other complaints. L Call or visit any of the clinics below to establish with a dentist: [facility] [address] [place] [address] [address] [place] [address] [address] [facility] [address] [place] [address] [address] [place] [address] [address] [facility] [address] [place] [address] [address] [facility] [address] [place] [address] [address] [facility] [address] [place] [address] [address] [facility] [address] [place] [address] [address] [facility] [address] [place] [address] [address] [place] [address] [address] [place] [address] [address] [facility] [address] [place] [address] [facility] [address] [place] [address] [facility] [address] [facility] [address] [place] [address] [facility] [address] [place] [address] [facility] [address] [place] [address] [facility] [address] [place] [address] [facility] [address] [facility], [address] [facility] [address] [place] [address] [address] [place] [address] [address] [place] [address] (One number for all locations) [facility] [address] [place] [address] [facility] [address] [place] [address] [facility] [address] [place] [address] L If you do not have a primary care provider - call any of the below numbers to establish and follow up with a primary care provider. [facility] Primary Care ([place]) [phone] [address] [facility], [address] [facility] Primary Care ([address] [place]) [phone] [facility], [address] [facility] Primary Care ([address] [place]) [phone], [address] [facility], [address] [facility] Primary Care ([place]) [phone] [place] [address], [address] [facility], [address] [facility] Family Medicine [phone] [address] [facility], [address] Please see the information below about our Patient Portal. If you are not yet enrolled in the [facility] [employer] Patient Portal, you will receive an enrollment email invitation following your visit to any [facility] setting. You may also self-enroll in the Patient Portal by visiting our website: [email or web address] The following information is required to access the Patient Portal: - Your [facility] Medical Record Number - Your personal home email address (must match what is in your electronic medical record, Registration staff can assist with this) - Name - Date of Capabilities of the Patient Portal: - Message some providers - View upcoming appointments - Access your health summary, medical history, and visit history - View current conditions and allergies - View procedure and lab results - View your medications, including guidelines, side effects, and precautions - Complete pre-appointment questionnaires requested by your provider - Ready summary reports of your office visits and procedures To access the Patient Portal Mobile Allison, follow these directions: - Search [employer] in the Allison Store or Experticity Store - Download the Allison - Search for [facility] - Enter your login/password Prescriptions: New penicillin V potassium 500 mg tablet 500 mg PO BID 10 Days Qty: 20 0RF chlorhexidine gluconate [Peridex] 0.12 % mouthwash 15 ml buccal BID Qty: 118 0RF No Action ferrous gluconate 324 mg (37.5 mg iron) tablet 324 mg PO DAILY Qty: 30 0RF tamsulosin 0.4 mg capsule 0.4 mg PO DAILY Qty: 7 0RF Stand Alone Forms: Work/School Release Print Language: Danish
[2025-04-27 10:04] VITALS: BP 156/79; PULSE 70; RESP 18; TEMP 36.3; O2SAT 99
--- OUTSIDE RECORDS SUMMARY | 2025-04-27 11:02 | XMS_ITS | Encounter Summary ---
Author Organization [facility] Address [address] [place] [address] Care Team Providers Care Transition Program Manager Name Role Phone Unavailable Primary Care Provider Unavailabl e Reason for Visit * Reason Comments Office Visit: Converted Data Conversion Encounter Details Date Type Department Care Team (Late st Contact Info) Description 01/18/2024 Dental Interim Note [facility] [address] [place] [address] Default, [facility] Provider [place] Social History Tobacco [...]
--- OUTSIDE RECORDS SUMMARY | 2025-04-27 11:02 | XMS_ITS | Clinical Summary ---
Author Organization [facility] Address [address] [place] [address] Care Team Providers Care Abattoir Supervisor Name Role Phone Unavailable Primary Care Provider [...] of 3 - 19+ 3-dose series) 1 Imm-HPV (1 - 3-dose SCDM series) 2019 Alcohol and Drug Screen 07/12/2024 Depression Annual Screen 07/12/2024 [id number] ( season) 2025 Imm-Influenza (#1) 2025
== END 2025-04-27 10:04 | disposition home or self-care (01) ==
PROVIDERS: Emergency Provider Emergency Medicine
DX: K12.2 Cellulitis and abscess of mouth (principal); R68.84 Jaw pain
CPT/HCPCS: 99282; 99283